=== PATIENT | male | born 1985 | race Native Hawaiian/Other Pacific Islander ===

== ENCOUNTER 2017-11-01 14:50 | Outpatient (CLI) | payer OTHER | END 2017-11-01 23:26 | disposition home or self-care (01) | LOC: RAD 14:50 | DX: M54.5 Low back pain (principal) ==

== ENCOUNTER 2018-07-04 08:00 | Outpatient (CLI) | payer OTHER ==
[2018-07-04 09:32] LABS: PLATELET COUNT 159 K/uL (142-355)
[2018-07-04 09:53] LABS: POTASSIUM 2.8 mmol/L (3.6-5.2)
== END 2018-07-04 23:16 | disposition home or self-care (01) ==
LOC: RESP 08:00
PROVIDERS: Specialist
DX: R56.9 Unspecified convulsions (principal)
CPT/HCPCS: 36415; 80053; 82533; 82542; 82607; 85027; 85651; 86038

== ENCOUNTER 2018-10-15 14:51 | Outpatient (CLI) | payer OTHER ==
[2018-10-15 15:13] LABS: PLATELET COUNT 107 K/uL (142-355)
[2018-10-15 15:25] LABS: POTASSIUM 3.8 mmol/L (3.6-5.2)
== END 2018-10-15 23:59 ==
LOC: LABW 14:51
PROVIDERS: Specialist
DX: R56.9 Unspecified convulsions (principal)
CPT/HCPCS: 36415; 80053; 82542; 85027

== ENCOUNTER 2019-02-06 08:30 | Emergency (ER) | payer OTHER ==
[~2019-02-06] VITALS: Ht 170.2 cm; Wt 72.6 kg
[2019-02-06 08:39] VITALS: TEMP 97.9
[2019-02-06 09:35] LABS: PLATELET COUNT 97 K/uL (142-355)
[2019-02-06 09:40] LABS: POTASSIUM 3.9 mmol/L (3.6-5.2)
[2019-02-06 10:39] VITALS: BP 128/84
== END 2019-02-06 10:40 | disposition home or self-care (01) ==
LOC: ED 08:30
PROVIDERS: Family Medicine
DX: M47.896 Other spondylosis, lumbar region (principal); M17.11 Unilateral primary osteoarthritis, right knee
CPT/HCPCS: 80053; 81000; 85027; 99283

== ENCOUNTER 2019-05-07 09:31 | Outpatient (CLI) | payer OTHER ==
[2019-05-07 09:47] LABS: PLATELET COUNT 156 K/uL (142-355)
== END 2019-05-07 22:44 | disposition home or self-care (01) ==
LOC: LABW 09:31
PROVIDERS: Nurse Practitioner Family
DX: Z00.00 Encounter for general adult medical examination without abnormal findings (principal); F51.01 Primary insomnia; M47.816 Spondylosis without myelopathy or radiculopathy, lumbar region; Z79.899 Other long term (current) drug therapy; R56.9 Unspecified convulsions
CPT/HCPCS: 36415; 80053; 80061; 83036; 84439; 84443; 84481; 85027

== ENCOUNTER 2019-08-01 12:18 | Emergency (ER) | payer OTHER ==
[~2019-08-01] VITALS: Ht 170.2 cm; Wt 72.6 kg
[2019-08-01 13:59] LABS: PLATELET COUNT 202 K/uL (142-355)
[2019-08-01 14:04] LABS: POTASSIUM 3.8 mmol/L (3.6-5.2)
[2019-08-01 15:11] VITALS: BP 120/89; TEMP 98.9
== END 2019-08-01 15:23 | disposition home or self-care (01) ==
LOC: ED 12:18
PROVIDERS: Emergency Medicine Emergency Medical Services
DX: R11.2 Nausea with vomiting, unspecified (principal); R55 Syncope and collapse; E87.1 Hypo-osmolality and hyponatremia
CPT/HCPCS: 36415; 80053; 82150; 83690; 85027; 93005; 96360; 96375; 99284; J2405

== ENCOUNTER 2019-08-10 13:29 | Outpatient (CLI) | payer OTHER ==
[2019-08-10 13:44] LABS: PLATELET COUNT 254 K/uL (142-355)
[2019-08-10 13:46] LABS: POTASSIUM 2.8 mmol/L (3.6-5.2)
== END 2019-08-10 22:07 | disposition home or self-care (01) ==
LOC: LAB 13:29
PROVIDERS: Nurse Practitioner Family
DX: R53.83 Other fatigue (principal); D64.9 Anemia, unspecified; E87.6 Hypokalemia; E83.42 Hypomagnesemia; R11.2 Nausea with vomiting, unspecified
CPT/HCPCS: 80053; 80074; 85027

== ENCOUNTER 2019-10-29 09:41 | Outpatient (CLI) | payer OTHER | END 2019-10-29 21:48 | disposition home or self-care (01) | LOC: MRI 09:41 | DX: K86.89 Other specified diseases of pancreas (principal); R93.3 Abnormal findings on diagnostic imaging of other parts of digestive tract ==

== ENCOUNTER 2019-10-29 11:18 | Emergency (ER) | payer OTHER ==
[~2019-10-29] VITALS: Ht 170.2 cm; Wt 54.4 kg
[2019-10-29 11:28] VITALS: BP 93/64; TEMP 98
[2019-10-29 12:37] LABS: POTASSIUM 3.1 mmol/L (3.6-5.2); SODIUM 139 mmol/L (136-145)
[2019-10-29 12:42] LABS: PLATELET COUNT 150 K/uL (142-355)
[2019-10-29 12:47] LABS: PARTIAL THROMBOPLASTIN TIME 51.7 SECONDS (24.5-33.6)
== END 2019-10-29 15:15 | disposition home or self-care (01) ==
LOC: ED 11:18
PROVIDERS: Hospitalist
DX: R51 Headache (principal); K74.69 Other cirrhosis of liver; J18.9 Pneumonia, unspecified organism; J98.11 Atelectasis; F17.210 Nicotine dependence, cigarettes, uncomplicated
CPT/HCPCS: 36415; 80053; 80320; 82140; 82550; 83880; 84484; 85027; 85610; 85730; 93005; 96365; 96366; 96375; 99284; J1940; J1956